=== PATIENT | male | born 1995 | race Caucasian/White ===

== ENCOUNTER 2018-10-03 16:53 | Inpatient (IN) | payer BC, OTHER ==
[~2018-10-03] VITALS: Ht 170.2 cm; Wt 52.2 kg
[2018-10-04] MEDS ORDERED: HYDROXYZINE PAMOATE 25 MG CAPSULE PO PRN (00:15)
[2018-10-04] MEDS ORDERED: diphenhydrAMINE 50 MG CAPSULE PO PRN (00:15)
[2018-10-04] MEDS ORDERED: SRC OPIOID WITHDRAWAL ADMITTING PROTOCOL XX PRN (00:15)
[2018-10-04] MEDS ORDERED: MAG HYDROX/AL HYDROX/SIMETH 30 ML LIQUID UDC PO PRN (00:15)
[2018-10-04] MEDS ORDERED: IBUPROFEN 600 MG TABLET PO PRN (00:15)
[2018-10-04] MEDS ORDERED: SRC BENZO WITHDRAWAL ADMITTING PROTOCOL XX PRN (00:15)
[2018-10-04] MEDS ORDERED: MIRALAX 17 GM POWD.PACK PO PRN (00:15)
[2018-10-04] MEDS ORDERED: ONDANSETRON ODT 4 MG TAB.RAPDIS SL PRN (00:15)
[2018-10-04] MEDS ORDERED: MAGNESIUM HYDROXIDE 30 ML LIQUID UDC PO PRN (00:15)
[2018-10-04] MEDS ORDERED: ONDANSETRON 4 MG/2 ML VIAL IM PRN (00:15)
[2018-10-04] MEDS ORDERED: LOPERAMIDE HCL 2 MG CAPSULE PO PRN ×2 (00:15)
[2018-10-04] MEDS ORDERED: ACETAMINOPHEN 325 MG TABLET PO PRN (00:15)
--- NOTE | 2018-10-04 00:20 | NUR ---
Pre admission note Patient is a 23 year old male admitted for medically supervised Benzo and Opiate withdrawal. Pt is AOx4 and is ambulatory with steady gait. Pt is noted top be anxious, restless, poor eye contact and withdrawn. Patient denies being intoxicated and experiencing withdrawal symptoms. Pt has medical hx of social anxiety, depression, bilateral wrist fx 2007, left collar bone fx 2007, right ankle fx 2007, and T9,T5,T4 vertebrae fx in 2009. Pt has had a seizure in 2015. Initial vital signs: BP 117/67, P 98, RR 16, Temp 98.2, and O2 97% on RA. Patient denies any pain. Will continue assess upon arrival on unit.
[2018-10-04 00:45] VITALS: BP 117/67
--- NOTE | 2018-10-04 00:45 | NUR ---
Admission note Patient is a 23 year old male admitted on 10/04/18 at 0031, for medically supervised Benzo and Opiate withdrawal. Pt is AOx4 and is ambulatory with steady gait. Pt is noted to be anxious, restless, poor eye contact and withdrawn. Pt denies being intoxicated. Pt reports his typical withdrawal symptoms consist of bodyaches, restlessness, insomnia, light sensitivity, fatigue, sweats and tremors. Pt stated upon unit arrival that he was starting to experience with anxiety, goosebump, yawning, tremors, sweats, runny nose, tearing eyes, and body aches. Pt's initial COWS was 16 and CIWA was 12. Pt has medical hx of social anxiety, depression, bilateral wrist fx 2007, left collar bone fx 2007, right ankle fx 2007, and T9,T5,T4 vertebrae fx in 2009. Pt did not bring any home meds, pt admits taking Xanax at home daily for Social Anxiety. Patient is allergic to Sulfa drugs. Pt is a full code and follows a regular diet at homes. Pt reports he has had a seizure in 2005 due to Xanax withdrawal. Pt denies withdrawal induced delirium, cardiac complications, overdoses, and blackouts. Pt stated he smokes a pack of cigarettes daily for 10 years, and he also smoke marijuana. Pt denies being in a 5150 in thats past. Pt also reports his father was addicted to Dahlen's in the past. Pt's support system is his parents. Pt reports he is currently homeless. 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 Pt stated his longest sobriety was 5 years in from 05/04/2012-05/06/17. Pt denies being under the care of a PCP and psychiatrist at the moment. Substance abuse 1) Xanax: Patient stated he was using 2-3 mg daily PO 1 year and a half at this rate. Pt last used 1 mg PO on 10/03/18 at 1900. He started using when she was 15 years old. 2) Heroin: Patient stated he was using 0.5-1.5 grams daily inhalation for a 1 year and a half. Pt last used 0.5 grams Inhalation on 10/03/18 at 1900. Pt started using when he was 15 years old. 3) Suboxone: Pt stated he uses 8mg/2mg PO for 1 year and a half, occasionally when he does not have Heroin. Pt stated he last used 8mg/2mg on 09/27/18. Pt states he has been using for 2 years. 4) Marijuana: Patient states he smokes 0.5 gram daily for the past 2 years. Pt last used 0.5 gram inhalation on 10/03/18 at 1900. Pt started smoking since he was 11 years old. Patient highest level of education is a high school diploma. When asked pt why he wants to get sober he stated: "I'm just tired of dealing with this s since I was 15 years old, I am just tired." Patient stated he has not faced legal consequences as a result of his drug use. Pt stated: "I am just tired of this, I want a better life." Pt has been to treatment in the past and the most recent one was [facility] in April -Jun 2015. When asked pt why is this admission going to be different he stated: "I am more grown up and more matured." Pt is 5'7" and weights 115 lbs per standing scale. Pt's skin is intact, and warm to touch. Capillary refill is <3 seconds. PERRLA is present with pupils 4 mm bilaterally. Lungs are cleared to auscultated bilaterally. Abdomen is soft and non-distended and bowel sounds are present in all four quadrants. Pt' last bowel movement was 10/03/18. Initial vital signs: BP 117/67, P 98, RR 16, Temp 98.2, and O2 97% on RA. Patient denies any pain. Breathing is even and unlabored with no s/s of distress. Pt was provided with instructions regarding unit policies and rules. He provided urine at intake office and blood sample is taken at unit. Fall and seizure precautions are in place, side rails are padded. Safety measures in place, bed locked in low position, side rails up x2, and call light within reach. Will continue to monitor. Addendum: 10/04/18 at 1032 by HERNANDEZ GALAN RN Clarification of Substance Abuse Timeline and UDS results: Per patient, when he stated he was sober from 05/04/12-05/06/17, he was only referring to Heroin. He continued to used Xanax and Cannabis during that time. When he went to treatment at [facility] in 2014, that was to detox from Xanax. Patient's UDS was positive for cocaine. When asked about it, patient stated that he used Cocaine 1g (nasal insufflation) one time two days ago.
[2018-10-04 01:18] LABS: *AMPHETAMINE, URINE NEGATIVE (NEGATIVE); *BARBITURATE, URINE NEGATIVE (NEGATIVE); *CANNABINOID, URINE POSITIVE (NEGATIVE); *COCCAINE, URINE POSITIVE (NEGATIVE); *OPIATE, URINE POSITIVE (NEGATIVE); *PHENCYCLIDINE SCREEN,URINE NEGATIVE (NEGATIVE)
[2018-10-04] MEDS: METHOCARBAMOL 750 MG TABLET PO PRN (02:08)
[2018-10-04] MEDS: LORAZEPAM 0.5 MG TABLET PO PRN ×2 (02:08→09:48)
[2018-10-04] MEDS: BUPRENORPHINE HCL 2 MG TAB.SUBL SL PRN ×2 (02:09→09:49)
--- NOTE | 2018-10-04 02:09 | NUR ---
PRN Ativan, Robaxin and Subutex Pt was presenting with anxiety, goosebump, yawning, tremors, sweats, runny nose, tearing eyes, and bodyaches. Pt CIWA was 12 and COWS was 16. Administered PRN Ativan, Robaxin and Subutex and pt tolerated well and will continue to monitor. Safety measures in place and call light within reach.
[2018-10-04 02:24] LABS: BASOPHILS # (AUTO) 0.1 K/uL (0.0-8.0); EOSINOPHILS # (AUTO) 0.2 K/uL (0.0-0.7); HEMATOCRIT 36.5 % (36.7-47.1); HEMOGLOBIN 13.4 g/dL (12.5-16.3); LYMPHOCYTES # (AUTO) 2.4 K/uL (20.0-40.0); LYMPHOCYTES % (AUTO) 39.4 % (20.5-51.5); MEAN CORPUSCULAR HEMOGLOBIN 32.9 uug (23.8-33.4); MONOCYTES # (AUTO) 0.6 K/uL (2.0-10.0); NEUTROPHILS # (AUTO) 2.8 K/uL (1.8-8.9); NEUTROPHILS % (AUTO) 46.6 % (38.5-71.5); PLATELET COUNT (AUTO) 262 K/uL (152-348); RED BLOOD CELL COUNT(AUTO) 4.06 MIL/uL (4.06-5.63)
[2018-10-04 02:27] LABS: MEAN CORPUSCULAR HGB CONC 37 g/dL (32.5-36.3)
[2018-10-04 02:44] LABS: ALANINE AMINOTRANSFERASE 17 U/L (16-63); ALKALINE PHOSPHATASE 95 U/L (50-136); ASPARTATE AMINOTRANSFERASE 12 U/L (15-37); BILIRUBIN,TOTAL 0.7 mg/dL (0.2-1.0); CARBON DIOXIDE 32 mmol/L (21-32); CHLORIDE 100 mmol/L (98-107); CREATININE 1.1 mg/dL (0.6-1.3); GLUCOSE 119 mg/dL (74-106); MAGNESIUM 2.1 mg/dL (1.8-2.4); POTASSIUM 3.2 mmol/L (3.5-5.1); TOTAL PROTEIN, SERUM 7.2 g/dL (6.4-8.2); UREA NITROGEN, BLOOD 6 mg/dL (7-18)
[2018-10-04 03:00] LABS: THYROID STIMULATING HORMONE 1.165 mIU/mL (0.358-3.740)
--- NOTE | 2018-10-04 03:09 | NUR ---
Reassessment PRN Ativan, Robaxin and Subutex Pt was noted in bed resting with eyes closed, breathing was even and unlabored. Medication noted to be effective. Safety measures in place and will continue to monitor.
[2018-10-04 03:25] LABS: ETHANOL < 3 MG/DL (0-0)
--- NOTE | 2018-10-04 07:29 | NUR ---
End of shift note Patient is a 38 year old female admitted on 09/28/18 for medically supervised ETOH and Benzo withdrawal. Patient completed a 5 day Valium taper. Pt is on fall and seizure precautions. Pt's last CIWA was 8. Pt had PRN Clonidine, Benadryl and Vistaril during this shift. Pt is being discharged today 10/04/18. Pt is still presenting with anxiety and agitation. Pt was cooperative with treatment plan. Pt is breathing even and unlabored with no s/s of distress. Pt slept for 9 hours and had a total of 1,355 ml. Pt voided x 4 and had no bowel movements during this shift. Safety measures in place, bed locked in low position, side rails up x2, and call light within reach. Will endorse to day shift. Addendum: 10/04/18 at 0730 by ANDREW MANCERA RN Error charting on wrong patient.
--- NOTE | 2018-10-04 07:30 | NUR ---
End of shift Patient is a 23 year old male admitted for medically supervised Benzo and Opiate withdrawal. Pt is on PRN medications, pending taper order. Pt's last CIWA was 12 and COWS was 16. Pt is on fall and seizure precautions. Pt has a low Potassium level of 3.2 and replacement is schedule for morning meds. Pt had PRN Ativan, Robaxin and Subutex during this shift. Pt continues to present with anxiety, goosebump, yawning, tremors, sweats, runny nose, tearing eyes, and bodyaches. Pt slept for 6 hours and had a total of 800 ml. Pt voided x 1 and had no bowel movements during this shift. Safety measures in place, bed locked in low position, side rails up x2, and call light within reach. Will endorse to day shift.
--- NOTE | 2018-10-04 07:35 | NUR ---
Start Of Shift Report received from manufacturing supervisor 2nd shift nurse. Patient is a 23 year old male admitted for medically supervised Benzo and Opiate withdrawal. Per manufacturing supervisor 2nd shift nurse pt's last CIWA was 12 and COWS 16. Pt is not currently on a taper but has PRN medication in case of withdrawal symptoms. Upon start of shift pt noted laying in bed with eyes open, resting, breathing even and unlabored. When greeted pt stated " Im feeling very agitated and annoyed right now Im getting my symptoms let me get my meds already", his clothes thrown around the room. Pt appears anxious, sweaty and flushed. During assessment, pt is AOx3. Lung sounds clear bilaterally. Radial pulse is regular and non-bounding. Abdomen soft and non-tender. Pt's skin is warm and intact. pt denies any pain at the moment. Encouraged pt to drink plenty of fluids to keep hydrated and help the detox process. Pt received PRN Ativan and Robaxin last night for withdrawal symptoms, per manufacturing supervisor 2nd shift medication was effective, pt slept a total of 3 hours last night. Bed in lowest position. Side rails up x2. Call light functioning and within reach. All needs attended and met. Will continue to monitor.
[2018-10-04 08:00] VITALS: BP 105/70
[2018-10-04] MEDS ORDERED: POTASSIUM CHLORIDE 20 MEQ TAB.PRT.SR PO ONE (09:00)
--- NOTE | 2018-10-04 09:53 | NUR ---
PRN MEDS Pt c/o symptoms of withdrawals presented sweaty agitated and anxious with a COWS score of 15 and a CIWA score of 12 Pt received PRN Ativan PO 2mg and Subutex 4mg SubL will continue to monitor pt.
--- NOTE | 2018-10-04 10:53 | NUR ---
PRN reassessment Pt stated "i feel a little better" pts score improved a little with COWS dropping to 14 and CIWA remaining the same at 12, MD notified and will speak to pt to make changes in meds if necessary and appropriate.
[2018-10-04 12:00] VITALS: BP 111/75
[2018-10-04] MEDS ORDERED: 5 DAY TAPER VALIUM-SERENITY PROTOCOL PO PRN (12:00)
[2018-10-04] MEDS ORDERED: DIAZEPAM 10 MG TABLET PO PRN ×2 (12:00)
[2018-10-04] MEDS ORDERED: DIAZEPAM 5 MG TABLET PO PRN (12:00)
[2018-10-04] MEDS ORDERED: 5 DAY TAPER BUPRENORPHINE -SERENITY PROTOCOL SL PRN (12:00)
[2018-10-04] MEDS: DIAZEPAM 10 MG TABLET PO SCH ×3 (12:32→21:58)
[2018-10-04] MEDS: BUPRENORPHINE HCL 2 MG TAB.SUBL SL SCH ×3 (12:33→21:59)
[2018-10-04 16:00] VITALS: BP 119/85
--- NOTE | 2018-10-04 19:28 | NUR ---
End of Shift Report given to overnight stocker nurse, Plan of care followed, Vital signs monitored closely Q4H. Withdrawals symptoms were closely monitored, medications given as schedule. Initial COWS 15 CIWA 12. Pt encouraged adequate PO fluid intake as tolerated to compensate for all the water lost in sweat as well as with helping speed up the detox process. Pt presented with diaphoresis, anxiety restless legs, yawning agitation, emotional volatility and restlessness during the day. Pt received all of the scheduled medications. Pt received PRN Subutex 4mg and Ativan 2mg. Last COWS 12 CIWA 12. Pt reported that Subutex and Valium tapers have been working well at controlling the withdrawal symptoms. Pt ate all of the meals. Pt did not attend any groups or meeting and was withdrawn always staying in his room, pt had a an episode of temper tantrum when he found out he wasnt able to smoke for an hour due to group, pt redirected and educated on relaxation techniques. Pt denies any SI/HI. All safety measures in place, bed in lowest locked position, call light within reach. All needs met and attended.
--- NOTE | 2018-10-04 19:30 | NUR ---
Start of Shift Patient Received. Per endorsement, patient is a 23 year old male who continues on a 5 day valium and 5 day Subutex taper. Patient received PRN Subutex, Ativan, and Vistaril with medication noted to be effective. Last noted COWS 12 and CIWA 12. Upon rounds patient is noted in his room, awake, alert and verbally responsive. Breathing even and non labored. Patient is noted to verbalize "I've been waiting to go smoke since 5pm and they keep telling me I have to wait." Explained to patient of unit policies and procedures. Patient verbalized understanding. Patient is able to verbalize need for sleep medication and reports previously taking Trazodone 50mg. Relayed to CN and MD. Patient is noted to verbalize that taper medications have been effective in minimizing signs and symptoms of withdrawals. All needs attended to promptly. Will continue plan of area ordered.
[2018-10-04] MEDS ORDERED: TRAZODONE 50 MG TABLET PO ONE (20:15)
[2018-10-04 20:30] VITALS: BP 108/70
[2018-10-04] MEDS: CLONIDINE HCL 0.1 MG TABLET PO PRN (21:58)
--- NOTE | 2018-10-04 22:00 | NUR ---
PRN Medication Administration Patient is noted verbalizing increased agitation, chills, sweats, and insomnia. PRN Clonidine and Trazodone administered. Will continue to monitor.
--- NOTE | 2018-10-04 23:00 | NUR ---
PRN Medication Reassessment Patient is noted in bed with eyes closed. Breathing even and non labored. No signs of restlessness or facial grimacing. PRN Clonidine and Trazodone noted to be effective. Will continue to monitor.
[2018-10-05 00:38] VITALS: BP 98/60
--- NOTE | 2018-10-05 04:31 | NUR ---
COWS and CIWA Assessment Patient is noted in bed with eyes close. Breathing even and non labored. No signs of restlessness or facial grimacing noted. patient refused vitals. COWS and CIWA not able to be completed as per order. Will continue to monitor.
[2018-10-05 07:07] LABS: HEPATITIS B SURFACE AG Negative (Negative)
--- NOTE | 2018-10-05 07:08 | NUR ---
End of Shift Patient is noted in bed with eyes closed. Breathing even and non labored. No signs of restlessness or facial grimacing noted. Patient continues on a 5 day valium and 5 day Subutex taper. Patient received PRN Clonidine and Trazodone with medication noted to be effective. Last noted COWS 11 and CIWA 13. Patient continues to be monitored for increased anxiety, agitation, chills, sweats, intermittent body aches, nasal stuffiness, tremulous to touch, and insomnia. Patient was noted to be compliant with group and social activities prior to bed. Patient noted to sleep a total of 6 hours. All needs attended to promptly. Will endorse to continue plan of area ordered.
--- NOTE | 2018-10-05 07:30 | NUR ---
START OF SHIFT Pt 23 y/o male admitted for benzo and opiate withdrawal. Pt received in room on bed with eyes closed resting, but arousable to name. Pt alert and oriented to name, place, and time. Perrla. Skin warm and moist to touch. Respirations even and unlabored. Appears disheveled. Clothes piled and scattered throughout the room. Encouraged to maintain hygiene. Anxious and restless. Irritable and agitated. Pressured speech. Fidgety. Angry. Bilateral hand tremors noted. It was reported that pt slept for 5 hours last night. Pt is on a 5 day valium taper and is on day 2. Pt is on a 5 day subutex and is on day 2. Bed on lowest position with side rails x2 up for safety. Call light within reach.
[2018-10-05 08:00] VITALS: BP 108/68
[2018-10-05] MEDS ORDERED: TUBERCULIN,PURIF.PROT.DERIV. 5 TU/0.1 ML TEST ID ONE (09:00)
[2018-10-05] MEDS: DIAZEPAM 5 MG TABLET PO SCH ×4 (09:30→22:02)
[2018-10-05] MEDS: MULTIVITAMINS,THERAPEUTIC TABLET PO SCH (09:30)
[2018-10-05] MEDS: BUPRENORPHINE HCL 2 MG TAB.SUBL SL SCH ×3 (09:30→22:02)
--- NOTE | 2018-10-05 10:16 | NUR ---
Therapist prompted client to attend group therapy.
[2018-10-05 12:00] VITALS: BP 116/72
[2018-10-05 16:00] VITALS: BP 134/87
--- NOTE | 2018-10-05 19:30 | NUR ---
Start of Shift Patient Received. Per endorsement, patient is a 23 year old male that continues on a modified Valium taper and modified Subutex taper. No PRN Medications administered. Patient was noted to participate in group and social activities. Last noted COWS 13 and CIWA 12. Upon rounds patient is noted in the activities room participating in a group meeting. Will continue to monitor.
--- NOTE | 2018-10-05 19:43 | NUR ---
END OF SHIFT Pt 23 y/o male admitted for benzo and opiate withdrawal. Pt alert and oriented to name, place, and time. Perrla. Skin warm and moist to touch. Respirations even and unlabored. Appears disheveled. Clothes scattered throughout the room. Food wrappings and empty drink bottles scattered throughout the room. Encouraged to maintain hygiene. Anxious and restless. Pacing. Irritable and agitated. Pressured speech. Complaints of generalized discomfort and generalized body aches. Intermittent perspiration. Last cows=13 @ 1600 ciwa= 12. Pt attend group activity. Pt is on a 5 day valium taper and is on day 2. Pt is on a 5 day Subutex taper and is on day 2. Bed on lowest position with side rails x2 up for safety. Call light within reach.
[2018-10-05 20:21] VITALS: BP 107/71
[2018-10-05 21:28] LABS: BILIRUBIN,TOTAL 0.4 mg/dL (0.2-1.0); CREATININE 1.2 mg/dL (0.6-1.3); MAGNESIUM 1.9 mg/dL (1.8-2.4); POTASSIUM 3.8 mmol/L (3.5-5.1); TOTAL PROTEIN, SERUM 7.1 g/dL (6.4-8.2)
[2018-10-05] MEDS: METHOCARBAMOL 750 MG TABLET PO PRN (22:02)
[2018-10-05] MEDS: CLONIDINE HCL 0.1 MG TABLET PO PRN (22:02)
--- NOTE | 2018-10-05 22:15 | NUR ---
PRN Medication Administration Patient is noted verbalizing increased anxiety, agitation, chills, sweats, and insomnia. PRN Clonidine, Robaxin, and Trazodone administered. Will continue to monitor.
[2018-10-05] MEDS ORDERED: TRAZODONE 50 MG TABLET PO ONE (23:00)
--- NOTE | 2018-10-06 00:30 | NUR ---
COWS, CIWA, and Vitals Patient is noted in bed with eyes closed. Breathing even and non labored. No signs of restlessness or facial grimacing noted. Patient refused vitals. CIWA and COWS not able to be completed as per order. Will continue to monitor.
--- NOTE | 2018-10-06 04:20 | NUR ---
Vitals, COWS, and CIWA Patient is noted in bed with eyes closed. Breathing even and non labored. Patient refused vitals. No signs of restlessness or facial grimacing noted. CIWA and COWS not able to be completed as per order. Will continue to monitor.
--- NOTE | 2018-10-06 07:13 | NUR ---
End of Shift Patient is noted in bed with eyes closed. Breathing even and non labored. No signs of restlessness or facial grimacing noted. Patient is a 23 year old that continues on a modified Valium and Subutex taper. Patient received PRN Robaxin, Clonidine, and Trazodone with medication noted to be effective. Patent continues to be monitored for increased signs and symptoms of withdrawal which include anxiety, agitation, chills, sweats, body aches, tremulous, restlessness, and insomnia. Last noted COWS 14 and CIWA 12. Patient noted to sleep a total of 7 hours. All needs attended to promptly. Will endorse to continue to monitor.
--- NOTE | 2018-10-06 07:30 | NUR ---
START OF SHIFT Pt 23 y/o male admitted for benzo and opiate withdrawal. Pt received in room awake watching television. Pt alert and oriented to name, place, and time. Perrla. Skin warm and moist to touch. Respirations even and unlabored. Appears disheveled. Clothes and empty drink bottles scattered throughout the room. Encouraged to maintain hygiene. Anxious and restless. Pressured speech. Bilateral hand tremors noted. Irritable. Pacing. It was reported that pt slept for 5 hours. pt is on 5 day valium taper and is on day 3. Pt is on a 5 day subutex taper and is on day 3. Bed on lowest position with side rails x2 up for safety. Call light within reach.
[2018-10-06 08:30] VITALS: BP 99/60
[2018-10-06] MEDS: DIAZEPAM 5 MG TABLET PO SCH ×3 (08:37→21:24)
[2018-10-06] MEDS: MULTIVITAMINS,THERAPEUTIC TABLET PO SCH (08:39)
[2018-10-06] MEDS ORDERED: BUPRENORPHINE HCL 2 MG TAB.SUBL SL SCH (09:00)
--- NOTE | 2018-10-06 09:00 | NUR ---
SUBUTEX REFUSED cows=10. Pt refusing subutex. States, " I dont' want to take it now. I want to see how i do without it this morning.". Anxious and restless. Pressured speech. Fidgety. Intermittent perspiration noted. Perspiration on forehead noted.
[2018-10-06 12:00] VITALS: BP 110/64
--- NOTE | 2018-10-06 14:58 | NUR ---
SUBUTEX REFUSED cows=10. Pt refusing subutex. States, " I don't need it. I'm fine!". Anxious and restless. Intermittent perspiration noted. perspiration on forehead noted. Irritable.
[2018-10-06] MEDS: BUPRENORPHINE HCL 2 MG TAB.SUBL SL SCH ×2 (15:00→21:00)
[2018-10-06 16:00] VITALS: BP 114/76
--- NOTE | 2018-10-06 16:16 | NUR ---
RT prompted pt to attend groups. Pt's improved group attendance and participation was positively reinforced
--- NOTE | 2018-10-06 18:05 | NUR ---
PRN MOTRIN Complaints headache 04/28. Motrin po prn per MD order given.
--- NOTE | 2018-10-06 19:05 | NUR ---
PRN FRANTZ KHAN Pt states headache 10/29.
--- NOTE | 2018-10-06 19:29 | NUR ---
END OF SHIFT Pt 33 y/o female admitted for benzo/ etoh/ opioid withdrawal. Pt alert and oriented to name, place, and time. Perrla. Skin warm and moist to touch. Respirations even and unlabored. Appears disheveled. Empty drink bottles scattered throughout room. Encouraged to maintain hygiene. Anxious and restless. Pressured speech. Bilateral hand tremors. Intermittent perspiration. Complaints of generalized body aches. Cows=10 ciwa=10 @1600. Pt attended group activity today. Pt is on a 5 day valium taper and is on day 3. Pt is on a 5 day subutex taper and is on day 3. Bed on lowest position with side rails x 2 up for safety. Call light within reach.
--- NOTE | 2018-10-06 19:45 | NUR ---
START OF SHIFT Patient is a 23-year-old male admitted on 10/03/18 for benzo and opiate withdrawal. Patient is currently on a 5-day Valium and 5-day Subutex taper, tolerating well. Patient received PRN Motrin today, noted to be effective. Last COWS 11, last CIWA 11 per endorsement. Upon assessment, patient is restless, agitated and irritated. Patient reports that he had not been able to call his mother earlier but that he was told he already made his phone call for the day. Patient is tearful and his hands in fists as he tells the nurse, No, Im not okay. Patient is fixated on leaving earlier than scheduled discharge date and therefore has been refusing his scheduled Subutex. Patient states, Im very co-dependent on my mom, shes like my anti-anxiety medication. Patient will be allowed to make another phone call per WAFER SLICER supervisor of way with Wilber approval. Patient is on fall and seizure precautions with most recent seizure in 2016 related to benzo withdrawal. Safety measures in place, side rails up x2, bed locked in low position, call light within reach. Will continue to monitor.
[2018-10-06 20:00] VITALS: BP 123/76
[2018-10-06] MEDS: METHOCARBAMOL 750 MG TABLET PO PRN (21:23)
--- NOTE | 2018-10-06 21:23 | NUR ---
PRN ROBAXIN Patient reports generalized body aches. PRN Robaxin 750mg given PO. Safety measures in place, side rails up x2, bed locked in low position, call light within reach. Will monitor for effectiveness.
[2018-10-06] MEDS ORDERED: TRAZODONE 50 MG TABLET PO ONE (21:30)
--- NOTE | 2018-10-06 22:23 | NUR ---
PRN ROBAXIN REASSESSMENT Patient reports "my muscles feel more relaxed." PRN Robaxin noted to be effective. Safety measures in place, side rails up x2, bed locked in low position, call light within reach. Will continue to monitor.
[2018-10-06] MEDS ORDERED: BUPRENORPHINE HCL 2 MG TAB.SUBL SL ONE (23:30)
--- NOTE | 2018-10-06 23:36 | NUR ---
ONE-TIME SUBUTEX 2mg Patient earlier refused his Subutex in hopes of leaving before scheduled discharge date, despite signs and symptoms of withdrawal. Patient is now requesting the Subutex he refused at 2100. One-time order placed and Subutex 2mg given SL. Current COWS 13. Safety measures in place, side rails up x2, bed locked in low position, call light within reach. Will continue to monitor.
[2018-10-07] VITALS: BP 116/71
[2018-10-07 04:00] VITALS: BP 108/66
--- NOTE | 2018-10-07 07:25 | NUR ---
END OF SHIFT Patient is a 23-year-old male admitted on 10/03/18 for benzo and opiate withdrawal. Patient is currently on a 5-day Valium and 5-day Subutex taper, tolerating well. Patient received PRN Robaxin, noted to be effective. Patient also received a one-time dose of Subutex, due to refusal of scheduled 2100 Subutex. Last COWS 13, last CIWA 11. Patient slept for 6 hours, total intake of 1,255mL, void x3, stool x0. Patient was able to speak with his mother and stepfather as well as discharge location. Patient is on fall and seizure precautions with most recent seizure in 2016 related to benzo withdrawal. Safety measures in place, side rails up x2, bed locked in low position, call light within reach. Will continue to monitor.
--- NOTE | 2018-10-07 07:30 | NUR ---
START OF SHIFT Pt 23 y/o male admitted for benzo and opiate withdrawal. Pt received in room with eyes closed resting but arousable to name. Pt alert and oriented to name, place, and time. Perrla. Skin warm and moist to touch. Respirations even and unlabored. Appears disheveled. Clothes scattered throughout the room. Encouraged to maintain hygiene. Anxious and restless. Pressured speech. Bilateral hand tremors noted. Irritable. It was reported that pt slept for 6 hours. Pt is on 5 day valium taper and is on day 4. Pt is on a 5 day subutex taper and is on day 4. Bed on lowest position with side rails x2 up for safety. Call light within reach.
[2018-10-07 08:00] VITALS: BP 112/75
[2018-10-07] MEDS: DIAZEPAM 5 MG TABLET PO SCH ×2 (08:58→21:55)
[2018-10-07] MEDS: MULTIVITAMINS,THERAPEUTIC TABLET PO SCH ×2 (08:58→09:00)
[2018-10-07] MEDS: BUPRENORPHINE HCL 2 MG TAB.SUBL SL SCH ×3 (08:59→21:55)
[2018-10-07] MEDS: busPIRone 5 MG TABLET PO SCH ×3 (11:46→17:17)
[2018-10-07 12:00] VITALS: BP 111/47
[2018-10-07 16:00] VITALS: BP 113/69
--- NOTE | 2018-10-07 18:33 | NUR ---
END OF SHIFT Pt 33 y/o female admitted for benzo/ etoh/ opioid withdrawal. Pt alert and oriented to name, place, and time. Perrla. Skin warm and moist to touch. Respirations even and unlabored. Appears disheveled. Clothes, food wrappings, and empty drink bottles scattered throughout room. Encouraged to maintain hygiene. Anxious and restless. Pressured speech. Bilateral hand tremors. Intermittent perspiration. Complaints of generalized body aches. Cows=11 ciwa=11 @1600. Pt attended group activity today. Pt is on a 5 day valium taper and is on day 4. Pt is on a 5 day subutex taper and is on day 4. Bed on lowest position with side rails x 2 up for safety. Call light within reach. Addendum: 10/07/18 at 1919 by JOSE MONTESINOS RN correction 23 y/o male
--- NOTE | 2018-10-07 19:30 | NUR ---
Start of Shift Patient Received. Per endorsement, patient is a 23 year old male that continues to be monitored for increased signs and symptoms of Opiate and Benzo withdrawal. He continues on a modified Valium and Subutex taper. Patient was seen and evaluated by MD and psychiatrist and was started on routine Buspar TID. No PRN medications administered. Last noted COWS 11 and CIWA 11. Upon rounds patient is noted to be restless, reports anxiety, agitation, tremulous, chills, sweats, and intermittent body aches. Patient reports that tapered medications have been effective in minimizing signs and symptoms of withdrawal. Patient noted to join peers for smoking break. All needs attended to promptly. Will continue plan of care as ordered.
[2018-10-07 20:30] VITALS: BP 114/77
[2018-10-07] MEDS: METHOCARBAMOL 750 MG TABLET PO PRN (21:55)
[2018-10-07] MEDS: TRAZODONE 50 MG TABLET PO PRN (21:55)
--- NOTE | 2018-10-07 22:10 | NUR ---
PRN Medication Administration Patient is noted verbalizing increased anxiety, body aches, chills, sweats, restlessness, and insomnia. PRN Robaxin and Trazodone administered. Will continue to monitor.
--- NOTE | 2018-10-07 22:10 | NUR ---
PRN medication Reassessment Patient is noted returning from smoking patio. he verbalizes "the medication helped. Im just trying to get ready for bed. Ill watch TV until I fall asleep." PRN Robaxin and Trazodone noted to be effective as per patient. Will continue to monitor.
[2018-10-07] MEDS: CLONIDINE HCL 0.1 MG TABLET PO PRN (23:26)
--- NOTE | 2018-10-07 23:30 | NUR ---
PRN medication Administration Patient is noted verbalizing increased chills and sweats, anxiety, and agitation. PRN Clonidine administered. Will continue to monitor.
[2018-10-08 00:55] VITALS: BP 114/71
--- NOTE | 2018-10-08 00:55 | NUR ---
PRN Medication reassessment/ COWS and CIWA Assessment Patient is noted in bed, awake, alert and verbally responsive. Patient is noted watching TV. Breathing even and non labored. He is noted to be restless, verbalizes anxiety, intermittent chills and sweats. Patient is able to verbalize "the medications have helped me. I just always stay up late to watch TV. Ill slowly make my way to sleep." Patient denies need for medications. PRN Clonidine noted to be effective. Will continue to monitor.
--- NOTE | 2018-10-08 04:20 | NUR ---
COWS, CIWA, and Vitals Patient is noted in bed with eyes closed. Breathing even and non labored. No signs of restlessness or facial grimacing. Patient refused vitals. COWS and CIWA not able to be completed as per order. Will continue to monitor.
--- NOTE | 2018-10-08 07:05 | NUR ---
End of Shift Patient is noted in bed with eyes closed. Breathing even and non labored. No signs of restlessness or facial grimacing noted. Patient continues on a modified Valium taper and Subutex taper for increased signs and symptoms of Opiate and Benzo withdrawal. Patient received PRN Clonidine, Robaxin , and Trazodone with medication noted to be effective. Patient noted to sleep a total of 6 hours. Last noted COWS 6 and CIWA 10. Patient reports signs and symptoms of Restlessness, reports anxiety, agitation, tremulous, chills, sweats, and intermittent body aches. He reports that taper medications have been effective in minimizing signs and symptoms of withdrawal. Patient is noted to be active in group and social activities. All needs attended to promptly. Will endorse to continue plan of care as ordered.
[2018-10-08 08:00] VITALS: BP 107/76
--- NOTE | 2018-10-08 08:18 | NUR ---
START OF SHIFT: Received pt A/O X 4. he presents with anxious mood and congruent affect. He is disheveled and his room is in disarray. Valium/Subutex taper in progress to manage s/s of w/d. CIWA 4 COWS 4 He reports the detox meds are effective. He states he is attending groups. Encouraged increased fluids and good hygiene to promote wellness. Will continue to monitor and offer support.
[2018-10-08] MEDS: busPIRone 5 MG TABLET PO SCH ×3 (08:25→16:53)
[2018-10-08] MEDS: MULTIVITAMINS,THERAPEUTIC TABLET PO SCH (08:25)
[2018-10-08] MEDS ORDERED: BUPRENORPHINE HCL 2 MG TAB.SUBL SL SCH (09:00)
[2018-10-08] MEDS ORDERED: DIAZEPAM 5 MG TABLET PO SCH (09:00)
[2018-10-08 12:00] VITALS: BP 109/58
--- NOTE | 2018-10-08 12:17 | NUR ---
Therapist prompted client to attend all daily group therapy sessions.
[2018-10-08] MEDS ORDERED: CLON0.1T14 PO (15:22)
[2018-10-08] MEDS ORDERED: METH-406 PO (15:22)
[2018-10-08] MEDS ORDERED: HYDR-3895 PO (15:22)
[2018-10-08] MEDS ORDERED: TRAZ-213 PO (15:22)
[2018-10-08] MEDS ORDERED: BUSP5TAB3 PO (15:22)
[2018-10-08 16:00] VITALS: BP 108/60
--- NOTE | 2018-10-08 19:13 | NUR ---
END OF SHIFT: Pt completed Valium / Subutex taper this morning. Last CIWA 6 COWS 4. He reported mild body aches and anxiety. He attended groups and interacted with peers. He is scheduled to discharge in morning tomorrow to [facility].He expressed motivation toward recovery. Will pass shift report to oncoming night nurse.
--- NOTE | 2018-10-08 19:30 | NUR ---
Start of shift note Received report from day shift nurse. Patient is a 23 year old male admitted for Benzodiazepine and Opiate withdrawal. Patient completed 3 day Valium taper. Patient is medically cleared to be discharge tomorrow. Patient in the room watching TV. Alert and oriented x 4. Patient present with flat affect and unshaven. Patient reports anxiety, restlessness, stuffy nose and night sweats. Safety measures in place. Will continue to monitor
[2018-10-08 20:00] VITALS: BP 106/63
[2018-10-08] MEDS: CLONIDINE HCL 0.1 MG TABLET PO PRN (20:22)
[2018-10-08] MEDS: TRAZODONE 50 MG TABLET PO PRN (20:22)
[2018-10-08] MEDS: METHOCARBAMOL 750 MG TABLET PO PRN (20:22)
--- NOTE | 2018-10-08 20:22 | NUR ---
PRN Catapres, Trazadone and Robaxin administration Patient reports anxiety, restlessness, muscle aches and requests for sleep aid. Will monitor for effectiveness
--- NOTE | 2018-10-08 21:22 | NUR ---
PRN Robaxin and Catapres re-assessment Patient states Robaxin and Catapres helpful and effective. Patient is less anxious and pain lessened.
[2018-10-09] VITALS: BP 112/68
--- NOTE | 2018-10-09 | NUR ---
JUAN and ADELFO Patient still awake , watching TV. Patient states he'll try to go to sleep soon. COWS 6 and ADELFO 5 at this time.
--- NOTE | 2018-10-09 01:00 | NUR ---
PRN Trazadone re-assessment Patient lying in bed with eyes closed. Respiration even and unlabored Will continue to monitor
--- NOTE | 2018-10-09 04:00 | NUR ---
COWS and CIWA deferred/VS refused Patient lying in bed with eyes closed. Respiration even and unlabored. Will continue to monitor
--- NOTE | 2018-10-09 07:21 | NUR ---
End of shift note Patient had difficulty falling asleep during shift. Patient frequently goes down to smoke. Patient completed 3 day Valium taper. Patient is medically cleared to be discharge today. Patient alert and oriented x 4. Patient presented with flat affect and unshaven. Patient reported anxiety, restlessness, stuffy nose and night sweats. Patient was given PRN Clonidine, Robaxin and Trazadone at 202. Patient fell asleep at 0100. Robaxin and Clonidine effective. Safety measures in place. Will continue to monitor. Slept 5 hours. Fluid intake 652 ml. Voided x 2. No BM. Last COWS 6 and CIWA 5.
[2018-10-09 08:00] VITALS: BP 103/61
--- NOTE | 2018-10-09 08:00 | NUR ---
START OF SHIFT Pt is a 23 yr old male, AA&Ox4. Pt was admitted on 10/03/18 for Benzo/Opiate withdrawal and completed a 5 day Valium taper and 5 day Subutex taper as ordered. Received report from night time nanny nurse. Pt was given Clonidine PRN, Robaxin PRN and Trazodone PRN as ordered. Last COWS score was 6 and CIWA score was 5. Pt is c/o anxiety, agitation and restlessness. Pt is stating. "Mentally I feel fine but physically I feel like shit". Pt is to be discharged today to [facility]. Pt was encouraged increase fluid intake for hydration. Will continue to to f/u.
[2018-10-09 09:09] VITALS: BP 103/61
[2018-10-09] MEDS: MULTIVITAMINS,THERAPEUTIC TABLET PO SCH (09:09)
[2018-10-09] MEDS: CLONIDINE HCL 0.1 MG TABLET PO PRN (09:09)
[2018-10-09] MEDS: busPIRone 5 MG TABLET PO SCH (09:09)
--- NOTE | 2018-10-09 09:15 | NUR ---
PRN GIVEN Pt was c/o restlessness, anxiety and agitation. Pt was given Clonidine 0.1mg PO PRN was given as ordered. Encouraged increase fluid intake. Will continue to monitor.
--- NOTE | 2018-10-09 10:00 | NUR ---
DISCHARGE NOTE Pt is a 23 yr old male, AA&Ox4. Pt was admitted on 10/03/18 for Benzo/Opiate withdrawal and completed a 5 day Valium taper and 5 day Subutex taper as ordered. Pt has been cooperative with medication regimen and plan of care. Pt was c/o anxiety and restlessness and was given Clonidine 0.1mg PO PRN prior to discharge. Medication was effective. Pt was educated on discharged summary and prescriptions. Pt was able to verbalize understanding. Pt was discharged off the unit at 0946 in stable condition. Pt was discharged to [facility]. Pt left with all belongings and valuables. No home medication was brought.
== END 2018-10-09 09:46 | disposition other institution (70) | DRG 895 ==
LOC: SRC 23:22
PROVIDERS: ADMIT Family Medicine Addiction Medicine; ATTEND Family Medicine Addiction Medicine
PROC: HZ2ZZZZ Detoxification Services for Substance Abuse Treatment (ICD-10-PCS; principal; 2018-10-03)
PROC: HZ31ZZZ Individual Counseling for Substance Abuse Treatment, Behavioral (ICD-10-PCS; 2018-10-05)
PROC: HZ41ZZZ Group Counseling for Substance Abuse Treatment, Behavioral (ICD-10-PCS; 2018-10-05)
DX: F11.23 Opioid dependence with withdrawal (principal); G40.509 Epileptic seizures related to external causes, not intractable, without status epilepticus; F13.230 Sedative, hypnotic or anxiolytic dependence with withdrawal, uncomplicated; Z59.0 Homelessness; Z87.81 Personal history of (healed) traumatic fracture; Z88.2 Allergy status to sulfonamides; E87.6 Hypokalemia; F40.10 Social phobia, unspecified; F32.9 Major depressive disorder, single episode, unspecified; F12.90 Cannabis use, unspecified, uncomplicated; F17.210 Nicotine dependence, cigarettes, uncomplicated
CPT/HCPCS: 36415; 70030-TC; 80307; 80346; 80349; 80353; 80361; 83735; 84443; 85025; 86592; 86705; 86803; 87340; 87806; A4663; G0480